=== PATIENT | male | born 1955 | race Caucasian/White ===

== ENCOUNTER → 2017-03-16 | Outpatient (REF) ==
[2016-03-22 15:02] VITALS: BP 128/78
[~2017-03-16] MED LIST: CITRUS CALCIUM1 TA1 PO; FISH OIL 1000MG1 CAP PO; METROGEL1% TP; MULTIPLE VITAMI1 TAB PO; NEXIUM 20MG20 MG PO; TRIAMTERENE/HCT1 CAP PO; VITAMIN C500 MG PO; ZITHROMAX 250M250 MG PO
== END ==
LOC: LAB 09:43
DX: Z00.00 Encounter for general adult medical examination without abnormal findings (principal); Z12.5 Encounter for screening for malignant neoplasm of prostate; Z12.11 Encounter for screening for malignant neoplasm of colon; E23.0 Hypopituitarism

== ENCOUNTER → 2017-04-21 | Outpatient (REF) ==
[2016-03-22 15:02] VITALS: BP 128/78
== END ==
LOC: LAB 08:42 → EDSTATUS 08:49
DX: Z00.00 Encounter for general adult medical examination without abnormal findings (principal)